=== PATIENT | male | born 1950 | race Hispanic/Latino ===

== ENCOUNTER 2017-06-17 16:36 | Emergency (ER) | payer OTHER ==
[~2017-06-17] VITALS: Ht 170.2 cm; Wt 68.0 kg
[2017-06-17] MEDS ORDERED: ONDANSETRON HCL INJ 2 MG/ML VIAL IV STA (17:06)
[2017-06-17] MEDS ORDERED: HYDROMORPHONE 1MG/1ML INJ IV STA (17:06)
[2017-06-17] MEDS ORDERED: ONDANSETRON HCL INJ 2 MG/ML VIAL IV SCH (17:15)
[2017-06-17] MEDS ORDERED: HYDROMORPHONE 1MG/1ML INJ IV SCH (17:15)
[2017-06-17] MEDS ORDERED: SODIUM CHLORIDE 0.9% 1000ML 1,000 ML IV SCH (17:15)
[2017-06-17 17:31] LABS: BASOPHILS # (AUTO) 0.1 (0.0-0.1); BASOPHILS % 0.2 % (0.0-1.0); EOSINOPHILS % 0.2 % (0.0-6.0); HEMATOCRIT 45.4 % (38.2-49.6); HEMOGLOBIN 16.3 g/dL (14.0-18.0); LYMPHOCYTES # (AUTO) 2.2 (1.0-3.2); LYMPHOCYTES % 10.5 % (18.0-39.1); MEAN CORPUSCULAR HEMOGLOBIN 33.7 pg (28-32); MEAN CORPUSCULAR HGB CONC 35.9 g/dL (31-35); MEAN CORPUSCULAR VOLUME 93.8 fL (81-99); MONOCYTES # (AUTO) 1.5 (0.2-0.8); NEUTROPHILS % 80.9 % (38.7-80.0); PLATELET COUNT 245 x10e3/uL (140-360); RED BLOOD COUNT 4.84 x10e6/uL (4.3-5.7); RED CELL DISTRIBUTION WIDTH 12.8 % (11.7-14.4)
[2017-06-17 17:42] LABS: INR 1.06; PARTIAL THROMBOPLASTIN TIME 27.7 seconds (23.8-35.5)
[2017-06-17 17:47] LABS: ALANINE AMINOTRANSFERASE 39 IU/L (0-55); ALBUMIN 4.3 g/dL (3.5-5.0); ALBUMIN/GLOBULIN RATIO 1.3 (0.8-2.0); ALKALINE PHOSPHATASE 63 IU/L (40-150); ANION GAP 20.3 mmol/L (8-16); BLOOD UREA NITROGEN 11 mg/dL (7-26); BUN/CREATININE RATIO 11 (6-25); CARBON DIOXIDE 18 mmol/L (22-29); CHLORIDE 98 mmol/L (98-107); CREATININE, SERUM 1.04 mg/dL (0.72-1.25); EST GLOMERULAR FILTRATION RATE > 60 ML/MIN (60-); GLUCOSE 119 mg/dL (74-118); POTASSIUM 3.3 mmol/L (3.5-5.1); SODIUM 133 mmol/L (136-145)
--- NOTE | 2017-06-17 18:15 | Diagnostic Imaging Report ---
Examination: CT BRAIN WITHOUT CONTRAST History:Fall. Head injury. Comparison studies:None Technique: Axial images were obtained from the skull base to the vertex. Coronal and sagittal images reconstructed from the axial data. Intravenous contrast: None Findings: Scalp: No abnormalities. Bones: No fractures, blastic or lytic lesions. Brain sulci: Mild volume loss for age. Ventricles: No hydrocephalus. Extra-axial space: No abnormalities. Parenchyma: A 6 mm dystrophic calcification is seen in the right superior frontal gyrus, likely related to prior infectious or inflammatory process. No masses, hemorrhage, or acute or chronic cortical based vascular insults. Sellar/suprasellar region: No abnormalities. Craniocervical junction: Patent foramen magnum. No Chiari one malformation. Incidental findings: None. Impression: No acute intracranial abnormalities. Signed by: Dr. Karen Mcnally M.D. on 06/17/2017 6:12 PM
--- NOTE | 2017-06-17 18:17 | Diagnostic Imaging Report ---
Examination: CT CERVICAL SPINE WITHOUT CONTRAST HISTORY:Fall. Neck trauma and pain. COMPARISON:None. TECHNIQUE: Multidetector helical axial images were obtained without contrast from the foramen magnum to T1. Coronal and sagittal reformatted images were done. Bone and soft tissue windows were evaluated. FINDINGS: Alignment:Normal alignment and lordosis. Vertebrae: Normal height and density. No acute fracture, infection or neoplasm. Disc space heights: Normal height. Caliber of spinal canal: Developmentally normal. Posterior fossa and craniocervical junction: Foramen magnum patent. No Chiari 1 malformation. Soft tissues: No abnormality. Degenerative changes: C2-C3: Severe right facet and bilateral uncovertebral arthropathy result in mild right neural foraminal narrowing. No left foraminal or canal stenosis. C3-C4: Bilateral uncovertebral and mild right facet arthropathy result in moderate right and mild left neural foraminal narrowing. No canal stenosis. C4-C5: Diffuse disc osteophyte complex and bilateral uncovertebral arthropathy result in mild right and moderate left neural foraminal narrowing and mild canal stenosis. C6-C7: Diffuse disc osteophyte complex and bilateral uncovertebral arthropathy result in mild bilateral neural foraminal narrowing. No canal stenosis. The remaining cervical levels demonstrate no disc bulge/ herniation or foraminal or canal stenosis. IMPRESSION: No acute fracture. Signed by: Dr. Karen Mcnally M.D. on 06/17/2017 6:14 PM
--- NOTE | 2017-06-17 18:21 | Diagnostic Imaging Report ---
PROCEDURE: CT scan of the chest WITH intravenous contrast, using standard protocol. TECHNIQUE: The chest was scanned utilizing a multidetector helical scanner from the lung apex through the level of the adrenal glands after the IV administration of 100 cc of Isovue 370. Coronal and sagittal multiplanar reformations were obtained. COMPARISON: None. INDICATIONS: fall from 12 ft trauma protocol FINDINGS: Lines/tubes: None. Lungs and Airways: Minimal bilateral lower lobe dependent atelectasis. No consolidation, pulmonary nodules or masses. Airways are clear, without endobronchial lesions. Pleura: No effusion, or pneumothorax. Heart and mediastinum: Thyroid is unremarkable. Heart size is normal. No pericardial effusion. Atherosclerotic calcification of the coronary arteries and thoracic aortic arch. Aorta is non-aneurysmal. No mediastinal hematoma. Moderate atherosclerotic soft and hard plaque at the origin of the left subclavian artery, with approximately 25% luminal reduction. Lymph nodes: No mediastinal, hilar, or axillary adenopathy. Abdomen: See CT abdomen and pelvis performed same date for further detail. Bones: Acute, minimally displaced mildly comminuted fracture of the superior border of the left scapula (series 2, image 7, and sagittal image 96). Likely nondisplaced fracture of the superior angle of the left scapula (series 2, image 7). Rectum structures show no acute, displaced fracture or dislocation. Soft tissues are grossly unremarkable. IMPRESSION: 1. acute, minimally displaced, mildly comminuted fracture of the superior border and likely nondisplaced fracture of the superior angle of the left scapula. No other acute, displaced fractures or dislocations. 2. Lungs are grossly unremarkable. No lung parenchymal contusions or pneumothorax. 3. No mediastinal hematoma or evidence of acute aortic injury. Shady Xiong M.D. Dictated by: Shady Xiong M.D. on 06/17/2017 at 18:21 Electronically approved by: Shady Xiong M.D. on 06/17/2017 at 18:21
--- NOTE | 2017-06-17 18:28 | Diagnostic Imaging Report ---
PROCEDURE: CT ABDOMEN AND PELVIS WITH CONTRAST TECHNIQUE: The abdomen and pelvis were scanned utilizing a multidetector helical scanner from the diaphragm to the lesser trochanter after the IV administration of 100 cc of Isovue 370 and the oral administration of water. Coronal and sagittal multiplanar reformations were obtained. COMPARISON: None. INDICATIONS: FALL, TRAUMA PROTOCOL FINDINGS: LOWER THORAX: Please see chest CT performed same date for further detail. HEPATOBILIARY: No focal hepatic lesions. No biliary ductal dilatation. Gallbladder is unremarkable. SPLEEN: No splenomegaly. PANCREAS: No focal masses or ductal dilatation. ADRENALS: No adrenal nodules. KIDNEYS/URETERS: No hydronephrosis, stones, or solid mass lesions. 3.2 x 4.1 x 4.2 cm, mostly exophytic hypodensity (76 HU), lesion arising from the posterior mid to inferior aspect of the left kidney (series 2, image 71), which contains thin linear peripheral calcification in its posterior aspect PELVIC ORGANS/BLADDER: Bladder is unremarkable. Dystrophic calcifications in the prostate. PERITONEUM / RETROPERITONEUM: No free air or free fluid. LYMPH NODES: No lymphadenopathy. VESSELS: Mild atherosclerotic calcification of the abdominal aorta and iliac vessels. Celiac trunk, superior and inferior mesenteric, and bilateral renal arteries are patent. Portal, superior mesenteric, and splenic arteries are patent. GI TRACT: No bowel dilation or evidence of obstruction. Postoperative changes in the proximal transverse colon, likely from prior right hemicolectomy. No focal lesion. Descending and sigmoid colon diverticulosis, without diverticulitis. BONES AND SOFT TISSUES: No acute, displaced fracture or dislocation. Mild degenerative changes in the lower thoracic and lumbosacral spine. Facet hypertrophy. L4-L5 and L5-S1. No aggressive lytic or blastic lesion. Bilateral small fat-containing inguinal hernias, left greater than right. IMPRESSION: 1. no evidence of acute bone, or solid organ injury in the abdomen and pelvis. 2. 4.2 cm high density lesion arising from the posterior mid to inferior aspect of the left kidney likely represents a hemorrhagic cyst. 3. Descending and sigmoid colon diverticulosis, without diverticulitis. Shady Xiong M.D. Dictated by: Shady Xiong M.D. on 06/17/2017 at 18:28 Electronically approved by: Shady Xiong M.D. on 06/17/2017 at 18:28
--- NOTE | 2017-06-17 18:31 | Diagnostic Imaging Report ---
PROCEDURE:X-RAY LEFT KNEE, THREE OR MORE VIEWS COMPARISON:None. INDICATIONS:FALL KNEE PAIN FINDINGS: Limited views due to positioning. Lateral and cross table AP views of the knee are submitted for interpretation. Acute, displaced spiral fracture of the distal femoral diaphysis. Ill defined 1.9 cm bony fragment projecting posterior to the femoral condyles is indeterminate, and probably represents a fracture fragment. Other bony structures are intact. Joint spaces are relatively well-preserved. Moderate suprapatellar effusion and soft tissue swelling.. CONCLUSION: Acute, displaced spiral fracture of the distal femoral diaphysis Ill defined 1.9 cm bony fragment projecting posterior to the femoral condyle likely represents a fracture fragment. Moderate suprapatellar effusion and soft tissue swelling. Shady Xiong M.D. Dictated by: Shady Xiong M.D. on 06/17/2017 at 18:32 Electronically approved by: Shady Xiong M.D. on 06/17/2017 at 18:32
--- NOTE | 2017-06-17 18:32 | Diagnostic Imaging Report ---
PROCEDURE:X-RAY LEFT LOWER LEG COMPARISON:None. INDICATIONS:FALL TRAUMA LEG PAIN FINDINGS: Normal mineralization. No acute, displaced fracture or dislocation in the lower leg. Joint spaces are relatively well-preserved. No lytic or blastic lesion. Soft tissues are grossly unremarkable. CONCLUSION: No acute abnormalities in the lower leg. Shady Xiong M.D. Dictated by: Shady Xiong M.D. on 06/17/2017 at 18:32 Electronically approved by: Shady Xiong M.D. on 06/17/2017 at 18:32
--- NOTE | 2017-06-17 18:35 | Diagnostic Imaging Report ---
PROCEDURE:FEMUR 2 VIEWS MINIMUM LEFT COMPARISON:None. INDICATIONS:FALL TRAUMA LEG PAIN FINDINGS: Normal mineralization. Acute, displaced spiral fracture of the distal femoral diaphysis, with lateral displacement of the distal fracture fragment by greater than one shaft width. Rest of the bony structures is intact. Mild degenerative changes in the left hip joint. Associated soft tissue swelling in the distal thigh. CONCLUSION: Acute, displaced spiral fracture of the distal femoral diaphysis with lateral displacement of the distal fracture fragment by greater than one shaft width. Shady Xiong M.D. Dictated by: Shady Xiong M.D. on 06/17/2017 at 18:35 Electronically approved by: Shady Xiong M.D. on 06/17/2017 at 18:35
--- NOTE | 2017-06-17 18:38 | Diagnostic Imaging Report ---
PROCEDURE:X-RAY LEFT WRIST, COMPLETE COMPARISON:None. INDICATIONS:FALL WRIST PAIN FINDINGS: Normal mineralization. Acute, comminuted, likely impacted fracture of the distal radial metaphysis with intra-articular extension in the medial aspect. Other bony structures are intact. No lytic or blastic lesions. Preserved alignment of the carpal bones with the radius. Moderate soft tissue swelling in the wrists. CONCLUSION: Acute, comminuted, likely impacted fracture of the distal radial metaphysis with intra-articular extension in its medial aspect. Shady Xiong M.D. Dictated by: Shady Xiong M.D. on 06/17/2017 at 18:38 Electronically approved by: Shady Xiong M.D. on 06/17/2017 at 18:38
[2017-06-17] MEDS ORDERED: IOPAMIDOL 370 MG/ML 200 ML INFUS..BTL INJ ONE (20:10)
[2017-06-17] MEDS ORDERED: SODIUM CHLORIDE 0.9% 50ML 50 ML ONE (20:10)
== END 2017-06-17 18:56 | disposition short-term general hospital (02) ==
LOC: ER 16:36
PROC: 2W3DX1Z Immobilization of Left Lower Arm using Splint (ICD-10-PCS; principal; 2017-06-17)
PROC: 2W3MX1Z Immobilization of Left Lower Extremity using Splint (ICD-10-PCS; 2017-06-17)
DX: S52.592A Other fractures of lower end of left radius, initial encounter for closed fracture (principal); S72.492A Other fracture of lower end of left femur, initial encounter for closed fracture; W17.89XA Other fall from one level to another, initial encounter; Y93.39 Activity, other involving climbing, rappelling and jumping off; Y92.007 Garden or yard of unspecified non-institutional (private) residence as the place of occurrence of the external cause
CPT/HCPCS: 29125; 29505; 36415; 70450; 71260; 72125; 73110; 73552; 73562; 73590; 74177; 80053; 80320; 85025; 85610; 85730; 93005; 99285; J1170; J2405; J7030; Q9967

== ENCOUNTER → 2018-02-14 | Day surgery (SDC) | payer MEDICARE ==
[2018-01-27 15:31] LABS: BASOPHILS % 0.3 % (0.0-1.0); EOSINOPHILS # (AUTO) 0.1 (0.0-0.4); EOSINOPHILS % 1.3 % (0.0-6.0); HEMATOCRIT 50.9 % (38.2-49.6); HEMOGLOBIN 17.5 g/dL (14.0-18.0); LYMPHOCYTES # (AUTO) 1.9 (1.0-3.2); LYMPHOCYTES % 21.9 % (18.0-39.1); MEAN CORPUSCULAR HGB CONC 34.4 g/dL (31-35); MEAN CORPUSCULAR VOLUME 95.9 fL (81-99); MONOCYTES # (AUTO) 0.6 (0.2-0.8); MONOCYTES % 6.7 % (4.4-11.3); NEUTROPHILS % 69.3 % (38.7-80.0); PLATELET COUNT 248 x10e3/uL (140-360); RED BLOOD COUNT 5.31 x10e6/uL (4.3-5.7); RED CELL DISTRIBUTION WIDTH 13.9 % (11.7-14.4)
[~2018-02-14] MED LIST: FLOMAX0.4 MG PO; MIDAZOLAM HCL 2 MG/2 ML VIAL ONE; PROPOFOL IV EMULSION 10 MG/ML 50 ML VIAL ONE; [UNRECOGNIZED DRUG - OTHER] PO
--- OUTSIDE RECORDS SUMMARY | 2018-02-14 05:12 | XMS REPORT | Summary of Care ---
Author Author [facility] Organization [facility] Address Unknown Phone Unavailable Encounter PIPO Wharton(MAT) [id number] Date(s): 06/17/17 - 06/21/17 [facility] [address] [employer] provided by [facility] [place] [address]- Encounter Diagnosis Unspecified fracture of unspecified femur, initial encounter for closed fracture (Final) - Displaced spiral fracture of shaft of left femur, initial encounter for closed f racture (Final) - 06/29/17 Acidosis (Final) - Hypo-osmolality and hyponatremia (Final) - Hyperkalemia (Final) - Stable burst fracture of first lumbar vertebra, initial encounter for closed fra cture (Final) - Other intraarticular fracture of lower end of left radius, initial encounter for closed fracture (Final) - Alcohol abuse with intoxication, uncomplicated (Final) - Fracture of other part of scapula, left shoulder, initial encounter for closed f racture (Final) - Fall on and from ladder, initial encounter (Final) - Nutritional anemia, unspecified (Final) - Displaced fracture of triquetrum [cuneiform] bone, left wrist, initial encounter for closed fracture (Final) - Displaced fracture of medial condyle of left femur, initial encounter for closed fracture (Final) - Displaced fracture of lateral condyle of left femur, initial encounter for close d fracture (Final) - Sprain of anterior cruciate ligament of left knee, initial encounter (Final) - Discharge Disposition: Home Care with Home Health Attending Physician: Gail Baer MD Admitting Physician: Fer Garces MD Vital Signs 1 2 3 Most recent to oldest [Reference Range]: 170.18 cm (06/18/17 3:06 AM) 170.18 cm (06/17/17 7:12 PM) Height 98.7 DegF (06/21/17 11:46 AM) 98.0 DegF (06/21/17 8:25 AM) 98.3 DegF (06/21/17 4:38 AM) Temperature Oral [96.4-99.1 DegF] 118/67 mmHg (06/21/17 11:46 AM) 125/68 mmHg (06/21/17 8:25 AM) 105/62 mmHg (06/21/17 4:38 AM) Blood Pressure [90-140/60-90 mmHg] 18 BRMIN (06/21/17 3:23 PM) 18 BRMIN (06/21/17 11:46 AM) 18 BRMIN (06/21/17 8:25 AM) Respiratory Rate [14-20 BRMIN] 87 bpm (06/21/17 11:46 AM) 96 bpm (06/21/17 8:25 AM) 81 bpm (06/21/17 4:38 AM) Peripheral Pulse Rate [60-100 bpm] 75 kg (06/18/17 3:06 AM) 75 kg (06/17/17 7:12 PM) Weight 25.9 m2 (06/18/17 3:06 AM) 25.9 m2 (06/17/17 7:12 PM) Body Mass Index Problem List No data available for this section Allergies, Adverse Reactions, Alerts Substance Reaction Severity Status NKDA Active Medications acetaminophen 1,000 mg, 2 tab, Route: PO, Drug form: TAB, Q6H, Dosing Weight 75, kg, Priority: NOW, Start date: 06/17/17 21:45:00 INCIDENT RESPONSE COORDINATOR, Duration: 30 day, Stop date: 07/17/17 2 2:00:00 CDT Notes: Max acetaminophen 4000 mg/day (4 gm/day). (Same as: Tylenol Extra Streng th) Start Date: 06/17/17 Stop Date: 06/21/17 Status: Discontinued acetaminophen (ANES) Route: IV, Drug form: INJ, ONCE, Stop date: 06/18/17 9:02:00 INCIDENT RESPONSE COORDINATOR Start Date: 06/18/17 Stop Date: 06/18/17 Status: Completed albuterol 0.083% inhalation solution 2.49 mg, 3 mL, Route: NEB, Drug form: SOLN, PRN, Dosing Weight 75, kg, PRN Respi ratory Protocol, Start date: 06/19/17 15:56:00 INCIDENT RESPONSE COORDINATOR, Duration: 30 day, Stop date: 07/19/17 16:55:00 CDT Notes: SEE RT DOCUMENTATION (Same as: Proventil) Start Date: 06/19/17 Stop Date: 06/21/17 Status: Discontinued Ancef 2 gm, 20 mL, Route: IVPB, Drug form: SOLN, Q8H, Dosing Weight 75, kg, Start date : 06/19/17 16:00:00 INCIDENT RESPONSE COORDINATOR, Duration: 1 day, Stop date: 06/20/17 8:00:00 INCIDENT RESPONSE COORDINATOR, ABX I ndication: Surgical Prophylaxis Notes: (Same as Ancef) Start Date: 06/19/17 Stop Date: 06/20/17 Status: Completed ANES flumazenil 0.2 mg, 2 mL, Route: IVP, Drug form: INJ, PRN, Dosing Weight 75, kg, PRN Benzodi azepine Reversal, Initial dose, Start date: 06/18/17 9:42:00 INCIDENT RESPONSE COORDINATOR, Duration: 30 d ay, Stop date: 07/18/17 10:41:00 CDT Notes: (Same as: Romazicon) Start Date: 06/18/17 Stop Date: 06/18/17 Status: Discontinued ANES flumazenil 0.2 mg, 2 mL, Route: IVP, Drug form: INJ, PRN, Dosing Weight 75, kg, PRN Benzodi azepine Reversal, Initial dose, Start date: 06/19/17 9:39:00 INCIDENT RESPONSE COORDINATOR, Duration: 30 d ay, Stop date: 07/19/17 10:38:00 CDT Notes: (Same as: Romazicon) Start Date: 06/19/17 Stop Date: 06/19/17 Status: Discontinued ANES hydrALAZINE 10 mg, 0.5 mL, Route: IVP, Drug form: INJ, Q20Min, Dosing Weight 75, kg, PRN Sparkle vated BP, Start date: 06/18/17 9:42:00 INCIDENT RESPONSE COORDINATOR, Duration: 2 doses or times, Stop luis angel e: Limited # of times Notes: (Same as: Apresoline)Push over 5 minutes Start Date: 06/18/17 Stop Date: 06/18/17 Status: Discontinued ANES HYDROmorphone 0.5 mg, 0.25 mL, Route: IVP, Drug form: INJ, Q5Min, Dosing Weight 75, kg, PRN Pa in Score 7-10, Start date: 06/19/17 9:39:00 INCIDENT RESPONSE COORDINATOR, Duration: 4 doses or times, Sto p date: Limited # of times Notes: Same as Dilaudid Start Date: 06/19/17 Stop Date: 06/19/17 Status: Discontinued ANES labetalol 10 mg, 2 mL, Route: IVP, Drug form: INJ, Q5Min, Dosing Weight 75, kg, PRN Elevat ed BP, Start date: 06/18/17 9:42:00 INCIDENT RESPONSE COORDINATOR, Duration: 5 doses or times, Stop date: Limited # of times Start Date: 06/18/17 Stop Date: 06/18/17 Status: Discontinued ANES labetalol 10 mg, 2 mL, Route: IVP, Drug form: INJ, Q5Min, Dosing Weight 75, kg, PRN Elevat ed BP, Start date: 06/19/17 9:39:00 INCIDENT RESPONSE COORDINATOR, Duration: 5 doses or times, Stop date: Limited # of times Start Date: 06/19/17 Stop Date: 06/19/17 Status: Discontinued ANES metoprolol 1 mg, 1 mL, Route: IVP, Drug form: INJ, Q5Min, Dosing Weight 75, kg, PRN Other - See Comment, Start date: 06/18/17 9:42:00 INCIDENT RESPONSE COORDINATOR, Duration: 5 doses or times, Stop date: Limited # of times Notes: (Same as: Lopressor)Push over 2 minutes Start Date: 06/18/17 Stop Date: 06/18/17 Status: Discontinued ANES morphine Sulfate 2 mg, 0.5 mL, Route: IVP, Drug form: SOLN, Q5Min, Dosing Weight 75, kg, PRN Pain Score 4-6, Start date: 06/18/17 9:42:00 INCIDENT RESPONSE COORDINATOR, Duration: 5 doses or times, Stop d ate: Limited # of times Notes: (Same as:MORPhine Sulfate) Start Date: 06/18/17 Stop Date: 06/18/17 Status: Discontinued ANES naloxone 0.4 mg, 1 mL, Route: IVP, Drug form: INJ, Q2MIN, Dosing Weight 75, kg, PRN Narco tic Reversal, Start date: 06/18/17 9:42:00 INCIDENT RESPONSE COORDINATOR, Duration: 8 doses or times, Stop date: Limited # of times Notes: Same as Narcan Start Date: 06/18/17 Stop Date: 06/18/17 Status: Discontinued ANES naloxone 0.4 mg, 1 mL, Route: IVP, Drug form: INJ, Q2MIN, Dosing Weight 75, kg, PRN Narco tic Reversal, Start date: 06/19/17 9:39:00 INCIDENT RESPONSE COORDINATOR, Duration: 8 doses or times, Stop date: Limited # of times Notes: Same as Narcan Start Date: 06/19/17 Stop Date: 06/19/17 Status: Discontinued ANES ondansetron 4 mg, 2 mL, Route: IVP, Drug form: INJ, ONCE, Dosing Weight 75, kg, PRN Nausea & Vomiting, Start date: 06/18/17 9:42:00 INCIDENT RESPONSE COORDINATOR Notes: (Same as: Eliazar) MEDICATION WASTE Product Size: 4 mgProduct Was mila: ___ mg Start Date: 06/18/17 Stop Date: 06/18/17 Status: Discontinued ANES ondansetron 4 mg, 2 mL, Route: IVP, Drug form: INJ, ONCE, Dosing Weight 75, kg, PRN Nausea & Vomiting, Start date: 06/19/17 9:39:00 INCIDENT RESPONSE COORDINATOR Notes: (Same as: Eliazar) MEDICATION WASTE Product Size: 4 mgProduct Was mila: ___ mg Start Date: 06/19/17 Stop Date: 06/19/17 Status: Discontinued ANES oxyCODONE 5 mg, 1 tab, Route: PO, Drug form: TAB, Q4H, Dosing Weight 75, kg, PRN Pain Scor e 4-6, Start date: 06/18/17 9:42:00 INCIDENT RESPONSE COORDINATOR, Duration: 30 day, Stop date: 07/18/17 9 :41:00 CDT Notes: (Same as: Roxicodone) Start Date: 06/18/17 Stop Date: 06/18/17 Status: Discontinued ANES oxyCODONE 10 mg, 2 tab, Route: PO, Drug form: TAB, Q4H, Dosing Weight 75, kg, PRN Pain Sco re 7-10, Start date: 06/18/17 9:42:00 INCIDENT RESPONSE COORDINATOR, Duration: 30 day, Stop date: 07/18/17 9:41:00 CDT Notes: (Same as: Roxicodone) Start Date: 06/18/17 Stop Date: 06/18/17 Status: Discontinued ANES oxyCODONE 5 mg, 1 tab, Route: PO, Drug form: TAB, Q4H, Dosing Weight 75, kg, PRN Pain Scor e 4-6, Start date: 06/19/17 9:39:00 INCIDENT RESPONSE COORDINATOR, Duration: 30 day, Stop date: 07/19/17 9 :38:00 CDT Notes: (Same as: Roxicodone) Start Date: 06/19/17 Stop Date: 06/19/17 Status: Discontinued aspirin 325 mg, 1 tab, Route: PO, Drug form: TAB, Daily, Dosing Weight 75, kg, Start luis angel e: 06/20/17 9:00:00 INCIDENT RESPONSE COORDINATOR, Duration: 30 day, Stop date: 07/19/17 9:00:00 CDT Notes: Take with food. Start Date: 06/20/17 Stop Date: 06/19/17 Status: Canceled aspirin 325 mg tablet 325 mg=1 tab, PO, BID, # 42 tab, 0 Refill(s), Pharmacy: [facility], [address] previous daily script, needs BID ASA for ppx. Start Date: 06/21/17 Stop Date: 07/12/17 Status: Ordered aspirin 325 mg tablet 325 mg=1 tab, PO, Daily, # 21 tab, 0 Refill(s), Pharmacy: [facility] Start Date: 06/21/17 Stop Date: 06/21/17 Status: Discontinued bisacodyl 10 mg, 2 tab, Route: PO, Drug form: ECTAB, Q24H, Dosing Weight 75, kg, PRN Const ipation, Start date: 06/17/17 21:39:00 INCIDENT RESPONSE COORDINATOR, Duration: 30 day, Stop date: 8 21:38:00 CDT Notes: (Same As: Dulcolax, Correctol) (Do Not Crush) "Do Not Crush" Start Date: 06/17/17 Stop Date: 06/21/17 Status: Discontinued ceFAZolin (ANES) Route: IV, Drug form: INJ, ONCE, Stop date: 06/19/17 9:55:00 INCIDENT RESPONSE COORDINATOR Start Date: 06/19/17 Stop Date: 06/19/17 Status: Completed ceFAZolin (ANES) Route: IV, Drug form: INJ, ONCE, Stop date: 06/18/17 8:47:00 INCIDENT RESPONSE COORDINATOR Start Date: 06/18/17 Stop Date: 06/18/17 Status: Completed ceFAZolin (SCIP) 2 gm, 20 mL, Route: IVP, Drug form: SOLN, Q8H, Dosing Weight 75, kg, Start date: 06/18/17 16:00:00 INCIDENT RESPONSE COORDINATOR, Duration: 3 doses or times, Stop date: 06/19/17 8:00:00 INCIDENT RESPONSE COORDINATOR, ABX Indication: Surgical Prophylaxis Notes: (Same as Ancef) Start Date: 06/18/17 Stop Date: 06/19/17 Status: Completed celecoxib 200 mg, 2 cap, Route: PO, Drug form: CAP, Q12H, Dosing Weight 75, kg, Priority: NOW, Start date: 06/17/17 21:45:00 INCIDENT RESPONSE COORDINATOR, Duration: 48 hr, Stop date: 06/19/17 21: 00:00 INCIDENT RESPONSE COORDINATOR Notes: NSAID. Please check indication. Not for seizure. (Same As: CeleBREX) Start Date: 06/17/17 Stop Date: 06/19/17 Status: Completed dexamethasone (ANES) Route: IV, Drug form: INJ, ONCE, Stop date: 06/19/17 10:07:00 INCIDENT RESPONSE COORDINATOR Start Date: 06/19/17 Stop Date: 06/19/17 Status: Completed dexamethasone (ANES) Route: IV, Drug form: INJ, ONCE, Stop date: 06/18/17 9:22:00 INCIDENT RESPONSE COORDINATOR Start Date: 06/18/17 Stop Date: 06/18/17 Status: Completed docusate 100 mg, Route: PO, Drug form: CAP, BID, Dosing Weight 75, kg, Priority: STAT, St art date: 06/18/17 9:52:00 INCIDENT RESPONSE COORDINATOR, Duration: 30 day, Stop date: 07/18/17 9:00:00 CD T Start Date: 06/18/17 Stop Date: 06/18/17 Status: Discontinued docusate 100 mg, 1 cap, Route: PO, Drug form: CAP, Q12H, Dosing Weight 75, kg, Start date : 06/18/17 14:00:00 INCIDENT RESPONSE COORDINATOR, Duration: 30 day, Stop date: 07/18/17 9:00:00 CDT Notes: (Same as: Colace) (Do Not Crush) Start Date: 06/18/17 Stop Date: 06/21/17 Status: Discontinued docusate 100 mg, 1 cap, Route: PO, Drug form: CAP, BID, Dosing Weight 75, kg, PRN Constip ation, Start date: 06/17/17 21:39:00 INCIDENT RESPONSE COORDINATOR, Duration: 30 day, Stop date: 07/17/17 21:38:00 CDT Notes: (Same as: Colace) (Do Not Crush) Start Date: 06/17/17 Stop Date: 06/18/17 Status: Discontinued enoxaparin 30 mg, 0.3 mL, Route: SUB-Q, Drug form: INJ, [id number], Dosing Weight 75, kg, Sta rt date: 06/18/17 13:00:00 INCIDENT RESPONSE COORDINATOR, Duration: 30 day, Stop date: 07/18/17 1:00:00 CD T Notes: (Same as: Lovenox) Start Date: 06/18/17 Stop Date: 06/21/17 Status: Discontinued enoxaparin 40 mg, 0.4 mL, Route: SUB-Q, Drug form: INJ, [id number], Dosing Weight 75, kg, Sta rt date: 06/17/17 22:00:00 INCIDENT RESPONSE COORDINATOR, Stop date: 07/16/17 22:00:00 CDT Notes: (Same as: Lovenox) Start Date: 06/17/17 Stop Date: 06/18/17 Status: Discontinued enoxaparin 30 mg, Route: SUB-Q, [id number], Dosing Weight 75, kg, Start date: 06/17/17 22:00: 00 INCIDENT RESPONSE COORDINATOR, Duration: 30 day, Stop date: 07/17/17 10:00:00 CDT Start Date: 06/17/17 Stop Date: 06/17/17 Status: Discontinued fentaNYL 100 microgram, Route: IV, ONCE, Dosing Weight 75, kg, Start date: 06/17/17 21:31 :00 INCIDENT RESPONSE COORDINATOR, Stop date: 06/17/17 21:31:00 INCIDENT RESPONSE COORDINATOR Start Date: 06/17/17 Stop Date: 06/17/17 Status: Completed fentaNYL 50 microgram, Route: IV, Drug form: INJ, ONCE, Dosing Weight 75, kg, Start date: 06/18/17 0:56:00 INCIDENT RESPONSE COORDINATOR, Stop date: 06/18/17 0:56:00 INCIDENT RESPONSE COORDINATOR, Pediatric Dosing; For pr ocedure; > 50 kg Start Date: 06/18/17 Stop Date: 06/18/17 Status: Completed fentaNYL (ANES) Route: IV, Drug form: INJ, ONCE, Stop date: 06/19/17 10:01:00 INCIDENT RESPONSE COORDINATOR Start Date: 06/19/17 Stop Date: 06/19/17 Status: Completed fentaNYL (ANES) Route: IV, Drug form: INJ, ONCE, Stop date: 06/18/17 9:22:00 INCIDENT RESPONSE COORDINATOR Start Date: 06/18/17 Stop Date: 06/18/17 Status: Completed folic acid 1 mg, 1 tab, Route: PO, Drug form: TAB, Daily, Dosing Weight 75, kg, Start date: 06/20/17 9:00:00 INCIDENT RESPONSE COORDINATOR, Duration: 30 day, Stop date: 07/19/17 9:00:00 CDT Notes: (Same as: Folvite) Start Date: 06/20/17 Stop Date: 06/21/17 Status: Discontinued influenza virus vaccine, inactivated 0.5 mL, Route: IM, Drug Form: SUSP, Daily, Start date: 06/18/17 9:00:00 INCIDENT RESPONSE COORDINATOR, Dur ation: 1 doses or times, Stop date: 06/18/17 9:00:00 INCIDENT RESPONSE COORDINATOR Notes: (Same as: Fluzone Quadrivalent, Fluarix Quadrivalent)For 3 years of age a nd older (0.5 mL IM)Shake well before use Start Date: 06/18/17 Stop Date: 06/18/17 Status: Completed ketOROLAC (ANES) IV, ONCE Start Date: 06/19/17 Stop Date: 06/19/17 Status: Completed ketOROLAC (ANES) IV, ONCE Start Date: 06/18/17 Stop Date: 06/18/17 Status: Completed Lactated Ringers Injection IV (ANES) 1000 mL Route: IV, Total Volume: 1,000, Start date: 06/18/17 7:31:00 INCIDENT RESPONSE COORDINATOR, Stop date: 07/03 8:31:00 INCIDENT RESPONSE COORDINATOR Start Date: 06/18/17 Stop Date: 06/18/17 Status: Completed Lactated Ringers Injection IV (ANES) 500 mL Route: IV, Total Volume: 500, Start date: 06/19/17 9:59:00 INCIDENT RESPONSE COORDINATOR, Stop date: 06/19 10:59:00 INCIDENT RESPONSE COORDINATOR Start Date: 06/19/17 Stop Date: 06/19/17 Status: Completed lidocaine (ANES) Route: IV, Drug form: INJ, ONCE, Stop date: 06/19/17 10:01:00 INCIDENT RESPONSE COORDINATOR Start Date: 06/19/17 Stop Date: 06/19/17 Status: Completed lidocaine (ANES) Route: IV, Drug form: INJ, ONCE, Stop date: 06/18/17 8:57:00 INCIDENT RESPONSE COORDINATOR Start Date: 06/18/17 Stop Date: 06/18/17 Status: Completed metoclopramide (ANES) Route: IV, Drug form: INJ, ONCE, Stop date: 06/19/17 10:07:00 INCIDENT RESPONSE COORDINATOR Start Date: 06/19/17 Stop Date: 06/19/17 Status: Completed midazolam (ANES) Route: IV, Drug form: SOLN, ONCE, Stop date: 06/19/17 10:01:00 INCIDENT RESPONSE COORDINATOR Start Date: 06/19/17 Stop Date: 06/19/17 Status: Completed MiraLax 17 gm, 1 pkt, Route: PO, Drug form: PWDR, Daily, Dosing Weight 75, kg, Start luis angel e: 06/20/17 9:00:00 INCIDENT RESPONSE COORDINATOR, Duration: 30 day, Stop date: 07/19/17 9:00:00 CDT Notes: Dissolve in 8 oz of water or juice.(Same as: Miralax) Start Date: 06/20/17 Stop Date: 06/21/17 Status: Discontinued morphine Sulfate 4 mg, Route: IVP, ONCE, Dosing Weight 75, kg, Priority: STAT, Start date: 19:30:00 INCIDENT RESPONSE COORDINATOR, Stop date: 06/17/17 19:30:00 INCIDENT RESPONSE COORDINATOR Start Date: 06/17/17 Stop Date: 06/17/17 Status: Completed morphine Sulfate (ANES) Route: IV, Drug form: INJ, ONCE, Stop date: 06/19/17 10:46:00 INCIDENT RESPONSE COORDINATOR Start Date: 06/19/17 Stop Date: 06/19/17 Status: Completed ondansetron 4 mg, 2 mL, Route: IVP, Drug form: INJ, Q24H, Dosing Weight 75, kg, PRN Nausea & Vomiting, Start date: 06/17/17 21:39:00 INCIDENT RESPONSE COORDINATOR, Duration: 30 day, Stop date: 07/17 21:38:00 CDT Notes: (Same as: Eliazar) MEDICATION WASTE Product Size: 4 mgProduct Was mila: ___ mg Start Date: 06/17/17 Stop Date: 06/21/17 Status: Discontinued ondansetron (ANES) Route: IV, Drug form: INJ, ONCE, Stop date: 06/18/17 10:07:00 INCIDENT RESPONSE COORDINATOR Start Date: 06/18/17 Stop Date: 06/18/17 Status: Completed oxyCODONE 5 mg immediate release 5 mg, 1 tab, Route: PO, Drug form: TAB, Q4H, Dosing Weight 75, kg, PRN Pain Scor e 4-6, Start date: 06/17/17 21:45:00 INCIDENT RESPONSE COORDINATOR, Duration: 30 day, Stop date: 07/17/17 21:44:00 CDT Notes: (Same as: Roxicodone) Start Date: 06/17/17 Stop Date: 06/21/17 Status: Discontinued PlasmaLyte A PH-7.4 1,000 mL 1,000 mL, Rate: 75 ml/hr, Infuse over: 13.3 hr, Route: IV, Dosing Weight 75 kg, Total Volume: 1,000, Start date: 06/19/17 0:00:00 INCIDENT RESPONSE COORDINATOR, Duration: 18 hr, Stop luis angel e: 06/19/17 17:59:00 INCIDENT RESPONSE COORDINATOR, 1.9, m2 Notes: (Same as: Isolyte S PH 7.4) Start Date: 06/19/17 Stop Date: 06/19/17 Status: Discontinued pneumococcal 13-valent vaccine 0.5 mL, Route: IM, Drug Form: INJ, ONCALL, Start date: 06/18/17 9:00:00 INCIDENT RESPONSE COORDINATOR, Dur ation: 1 doses or times Notes: Shake well prior to use (Same as: Prevnar 13) Start Date: 06/18/17 Stop Date: 06/21/17 Status: Discontinued pregabalin 100 mg, 1 cap, Route: PO, Drug form: CAP, Q8H, Dosing Weight 75, kg, Priority: N OW, Start date: 06/17/17 21:45:00 INCIDENT RESPONSE COORDINATOR, Duration: 48 hr, Stop date: 06/19/17 14:0 0:00 INCIDENT RESPONSE COORDINATOR Notes: (Same as: Juan) Start Date: 06/17/17 Stop Date: 06/19/17 Status: Completed propofol (ANES) Route: IV, Drug form: INJ, ONCE, Stop date: 06/19/17 10:01:00 INCIDENT RESPONSE COORDINATOR Start Date: 06/19/17 Stop Date: 06/19/17 Status: Completed propofol (ANES) Route: IV, Drug form: INJ, ONCE, Stop date: 06/18/17 9:22:00 INCIDENT RESPONSE COORDINATOR Start Date: 06/18/17 Stop Date: 06/18/17 Status: Completed rocuronium (ANES) Route: IV, Drug form: INJ, ONCE, Stop date: 06/18/17 8:57:00 INCIDENT RESPONSE COORDINATOR Start Date: 06/18/17 Stop Date: 06/18/17 Status: Completed senna 8.6 mg, 1 tab, Route: PO, Drug Form: TAB, Dosing Weight 75, kg, BID, Start date: 06/19/17 17:00:00 INCIDENT RESPONSE COORDINATOR, Duration: 30 day, Stop date: 07/19/17 9:00:00 CDT Notes: (Same as: Megan) Start Date: 06/19/17 Stop Date: 06/21/17 Status: Discontinued senna 17.2 mg, 2 tab, Route: PO, Drug Form: TAB, Dosing Weight 75, kg, Bedtime, Start date: 06/18/17 21:00:00 INCIDENT RESPONSE COORDINATOR, Duration: 30 day, Stop date: 07/17/17 21:00:00 CDT Notes: (Same as: Megan) Start Date: 06/18/17 Stop Date: 06/19/17 Status: Discontinued Sodium Chloride 0.9% (Bolus) IV 1,000 mL, 1000 ml/hr, Infuse Over: 1 hr, Route: IV, 1,000, Drug form: INJ, ONCE, Priority: STAT, Dosing Weight 75 kg, Start date: 06/17/17 20:37:00 INCIDENT RESPONSE COORDINATOR, Stop da te: 06/17/17 20:37:00 INCIDENT RESPONSE COORDINATOR Start Date: 06/17/17 Stop Date: 06/17/17 Status: Completed Sodium Chloride 0.9% (Bolus) IV 1,000 mL, 1000 ml/hr, Infuse Over: 1 hr, Route: IV, 1,000, Drug form: INJ, ONCE, Priority: STAT, Dosing Weight 75 kg, Start date: 06/17/17 20:35:00 INCIDENT RESPONSE COORDINATOR, Stop da te: 06/17/17 20:35:00 INCIDENT RESPONSE COORDINATOR Start Date: 06/17/17 Stop Date: 06/17/17 Status: Completed Sodium Chloride 0.9% (Bolus) IV 1,000 mL, 1000 ml/hr, Infuse Over: 1 hr, Route: IV, 1,000, Drug form: INJ, ONCE, Priority: STAT, Dosing Weight 75 kg, Start date: 06/17/17 20:33:00 INCIDENT RESPONSE COORDINATOR, Stop da te: 06/17/17 20:33:00 INCIDENT RESPONSE COORDINATOR Start Date: 06/17/17 Stop Date: 06/17/17 Status: Completed Sodium Chloride 0.9% (Bolus) IV 1,000 mL, 1000 ml/hr, Infuse Over: 1 hr, Route: IV, 1,000, Drug form: INJ, ONCE, Priority: STAT, Dosing Weight 75 kg, Start date: 06/17/17 22:06:00 INCIDENT RESPONSE COORDINATOR, Stop da te: 06/17/17 22:06:00 INCIDENT RESPONSE COORDINATOR Start Date: 06/17/17 Stop Date: 06/18/17 Status: Completed thiamine 100 mg, 1 tab, Route: PO, Drug form: TAB, Daily, Dosing Weight 75, kg, Start luis angel e: 06/20/17 9:00:00 INCIDENT RESPONSE COORDINATOR, Duration: 30 day, Stop date: 07/19/17 9:00:00 CDT Notes: (Same As: Vitamin B1) Start Date: 06/20/17 Stop Date: 06/21/17 Status: Discontinued tramadol 100 mg, 2 tab, Route: PO, Drug form: TAB, Q6H, Dosing Weight 75, kg, Priority: N OW, Start date: 06/17/17 21:45:00 INCIDENT RESPONSE COORDINATOR, Duration: 30 day, Stop date: 07/17/17 20: 00:00 CDT Notes: Not to exceed 400mg/day. (Same As: Ultram) Start Date: 06/17/17 Stop Date: 06/21/17 Status: Discontinued Results BLOOD BANK RESULTS 1 2 3 Most recent to oldest [Reference Range]: A POS *Unknown* (06/17/17 7:44 PM) ABO/Rh Negative (06/17/17 7:44 PM) Antibody Scrn ELECTROLYTES 1 2 3 Most recent to oldest [Reference Range]: 135 mEq/L (06/20/17 5:06 AM) 133 mEq/L *LOW* (06/19/17 1:47 AM) 133 mEq/L *LOW* (06/18/17 3:10 AM) Sodium Lvl [135-145 mEq/L] 4.2 mEq/L (06/20/17 5:06 AM) 4.9 mEq/L (06/19/17 1:47 AM) 4.5 mEq/L (06/18/17 3:10 AM) Potassium Lvl [3.5-5.1 mEq/L] 101 mEq/L (06/20/17 5:06 AM) 100 mEq/L (06/19/17 1:47 AM) 102 mEq/L (06/18/17 3:10 AM) Chloride Lvl [95-109 mEq/L] 24 mEq/L (06/20/17 5:06 AM) 22 mEq/L *LOW* (06/19/17 1:47 AM) 20 mEq/L *LOW* (06/18/17 3:10 AM) CO2 [24-32 mEq/L] 14.2 mEq/L (06/20/17 5:06 AM) 15.9 mEq/L (06/19/17 1:47 AM) 15.5 mEq/L (06/18/17 3:10 AM) AGAP [10.0-20.0 mEq/L] CHEM PANEL 1 2 3 Most recent to oldest [Reference Range]: 0.78 mg/dL (06/20/17 5:06 AM) 1.20 mg/dL (06/19/17 1:47 AM) 0.73 mg/dL (06/18/17 3:10 AM) Creatinine Lvl [0.50-1.40 mg/dL] 94 mL/min/1.73m2 1 *NA* (06/20/17 5:06 AM) 63 mL/min/1.73m2 2 *NA* (06/19/17 1:47 AM) 96 mL/min/1.73m2 3 *NA* (06/18/17 3:10 AM) eGFR 15 mg/dL (06/20/17 5:06 AM) 20 mg/dL (06/19/17 1:47 AM) 12 mg/dL (06/18/17 3:10 AM) BUN [7-22 mg/dL] 121 mg/dL *HI* (06/20/17 5:06 AM) 148 mg/dL *HI* (06/19/17 1:47 AM) 85 mg/dL (06/18/17 3:10 AM) Glucose Lvl [70-99 mg/dL] 6.8 g/dL (06/17/17 7:44 PM) Total Protein [6.4-8.4 g/dL] 3.4 g/dL *LOW* (06/17/17 7:44 PM) Albumin Lvl [3.5-5.0 g/dL] 3.4 g/dL (06/17/17 7:44 PM) Globulin [2.7-4.2 g/dL] 1.0 (06/17/17 7:44 PM) A/G Ratio [0.7-1.6] 7.6 mg/dL *LOW* (06/20/17 5:06 AM) 8.0 mg/dL *LOW* (06/19/17 1:47 AM) 7.7 mg/dL *LOW* (06/18/17 3:10 AM) Calcium Lvl [8.5-10.5 mg/dL] 47 unit/L (06/17/17 7:44 PM) ALT [0-65 unit/L] 65 unit/L *HI* (06/17/17 7:44 PM) AST [0-37 unit/L] 60 unit/L (06/17/17 7:44 PM) Alk Phos [39-136 unit/L] 0.9 mg/dL (06/17/17 7:44 PM) Bili Total [0.2-1.3 mg/dL] 0.1 mg/dL (06/17/17 7:44 PM) Bili Direct [0.0-0.3 mg/dL] 0.8 mg/dL (06/17/17 7:44 PM) Bili Indirect [0.0-1.0 mg/dL] 1.6 mMol/L (06/18/17 1:31 AM) 3.4 mMol/L *HI* (06/17/17 7:44 PM) Lactic Acid Lvl [0.5-2.2 mMol/L] 281 mOsm/kg (06/20/17 5:06 AM) Osmolality [280-300 mOsm/kg] 1Result Comment: The eGFR is calculated using the CKD-EPI formula. In most young, healthy individuals the eGFR will be >90 mL/min/1.73m2. The eGFR declines with age. An eGFR of 60-89 may be normal in some populations, particularly the elderly, for whom the CKD-EPI formula has not been extensively validated. Use of the eGFR is not recommended in the following populations: Individuals with unstable creatinine concentrations, including patients and those with serious co-morbid conditions. Patients with extremes in muscle mass or diet. The data above are obtained from the [employer] ( [employer]) which additionally recommends that when the eGFR is used in patients with extremes of body mass index for purposes of drug dosing, the eGFR should be mul tiplied by the estimated BMI. 2Result Comment: The eGFR is calculated using the CKD-EPI formula. In most young, healthy individuals the eGFR will be >90 mL/min/1.73m2. The eGFR declines with age. An eGFR of 60-89 may be normal in some populations, particularly the elderly, for whom the CKD-EPI formula has not been extensively validated. Use of the eGFR is not recommended in the following populations: Individuals with unstable creatinine concentrations, including patients and those with serious co-morbid conditions. Patients with extremes in muscle mass or diet. The data above are obtained from the National Kidney Disease Education Program ( NKDEP) which additionally recommends that when the eGFR is used in patients with extremes of body mass index for purposes of drug dosing, the eGFR should be mul tiplied by the estimated BMI. 3Result Comment: The eGFR is calculated using the CKD-EPI formula. In most young, healthy individuals the eGFR will be >90 mL/min/1.73m2. The eGFR declines with age. An eGFR of 60-89 may be normal in some populations, particularly the elderly, for whom the CKD-EPI formula has not been extensively validated. Use of the eGFR is not recommended in the following populations: Individuals with unstable creatinine concentrations, including patients and those with serious co-morbid conditions. Patients with extremes in muscle mass or diet. The data above are obtained from the National Kidney Disease Education Program ( NKDEP) which additionally recommends that when the eGFR is used in patients with extremes of body mass index for purposes of drug dosing, the eGFR should be mul tiplied by the estimated BMI. ANEMIA STUDY 1 2 3 Most recent to oldest [Reference Range]: 1569 pg/mL *HI* (06/20/17 5:06 AM) Vitamin B12 Lvl [254-1320 pg/mL] 11.8 ng/mL (06/19/17 5:44 PM) Folate Lvl [>=3.0 ng/mL] TOXICOLOGY 1 2 3 Most recent to oldest [Reference Range]: .106 % *NA* (06/17/17 7:44 PM) Etoh (%) 106 mg/dL *NA* (06/17/17 7:44 PM) Ethanol Lvl URINE CHEM 1 2 3 Most recent to oldest [Reference Range]: 352 mOsm/kg (06/19/17 5:53 PM) U Osmolality [300-800 mOsm/kg] HEMATOLOGY 1 2 3 Most recent to oldest [Reference Range]: 9.1 K/CMM (06/20/17 5:06 AM) 9.4 K/CMM (06/19/17 1:47 AM) 10.6 K/CMM *HI* (06/18/17 3:10 AM) WBC [3.7-10.4 K/CMM] 2.50 M/CMM *LOW* (06/20/17 5:06 AM) 3.18 M/CMM *LOW* (06/19/17 1:47 AM) 3.93 M/CMM *LOW* (06/18/17 3:10 AM) RBC [4.70-6.10 M/CMM] 8.5 g/dL *LOW* (06/20/17 5:06 AM) 10.8 g/dL *LOW* (06/19/17 1:47 AM) 13.3 g/dL *LOW* (06/18/17 3:10 AM) Hgb [14.0-18.0 g/dL] 23.7 % *LOW* (06/20/17 5:06 AM) 30.4 % *LOW* (06/19/17 1:47 AM) 38.1 % *LOW* (06/18/17 3:10 AM) Hct [42.0-54.0 %] 94.8 fL *HI* (06/20/17 5:06 AM) 95.5 fL *HI* (06/19/17 1:47 AM) 97.0 fL *HI* (06/18/17 3:10 AM) MCV [80.0-94.0 fL] 34.1 pg *HI* (06/20/17 5:06 AM) 33.9 pg *HI* (06/19/17 1:47 AM) 33.9 pg *HI* (06/18/17 3:10 AM) MCH [27.0-31.0 pg] 35.9 g/dL (06/20/17 5:06 AM) 35.5 g/dL (06/19/17 1:47 AM) 34.9 g/dL (06/18/17 3:10 AM) MCHC [32.0-36.0 g/dL] 13.1 % (06/20/17 5:06 AM) 12.9 % (06/19/17 1:47 AM) 13.4 % (06/18/17 3:10 AM) RDW [11.5-14.5 %] 9.4 fL (06/20/17 5:06 AM) 9.5 fL (06/19/17 1:47 AM) 9.3 fL (06/18/17 3:10 AM) MPV [7.4-10.4 fL] 137 K/CMM (06/20/17 5:06 AM) 152 K/CMM (06/19/17 1:47 AM) 181 K/CMM (06/18/17 3:10 AM) Platelet [133-450 K/CMM] 81.8 % *HI* (06/20/17 5:06 AM) 77.1 % *HI* (06/19/17 1:47 AM) 78.2 % *HI* (06/18/17 3:10 AM) Segs [45.0-75.0 %] 8.4 % *LOW* (06/20/17 5:06 AM) 9.7 % *LOW* (06/19/17 1:47 AM) 11.1 % *LOW* (06/18/17 3:10 AM) Lymphocytes [20.0-40.0 %] 9.7 % (06/20/17 5:06 AM) 13.0 % *HI* (06/19/17 1:47 AM) 10.6 % (06/18/17 3:10 AM) Monocytes [2.0-12.0 %] 0.1 % (06/19/17 1:47 AM) 0.1 % (06/18/17 1:31 AM) Eosinophils [0.0-4.0 %] 0.1 % (06/20/17 5:06 AM) 0.1 % (06/19/17 1:47 AM) 0.1 % (06/18/17 3:10 AM) Basophils [0.0-1.0 %] 7.5 K/CMM (06/20/17 5:06 AM) 7.2 K/CMM (06/19/17 1:47 AM) 8.3 K/CMM *HI* (06/18/17 3:10 AM) Segs-Bands # [1.5-8.1 K/CMM] 0.8 K/CMM *LOW* (06/20/17 5:06 AM) 0.9 K/CMM *LOW* (06/19/17 1:47 AM) 1.2 K/CMM (06/18/17 3:10 AM) Lymphocytes # [1.0-5.5 K/CMM] 0.9 K/CMM *HI* (06/20/17 5:06 AM) 1.2 K/CMM *HI* (06/19/17 1:47 AM) 1.1 K/CMM *HI* (06/18/17 3:10 AM) Monocytes # [0.0-0.8 K/CMM] Normal (06/18/17 1:31 AM) Normal (06/17/17 7:44 PM) RBC Morph slight *NA* (06/17/17 7:44 PM) Toxic Gran Normal (06/18/17 1:31 AM) Normal (06/17/17 7:44 PM) Plt Morph 14.5 seconds (06/19/17 1:47 AM) 14.1 seconds (06/18/17 3:10 AM) PT [12.0-14.7 seconds] 1.13 (06/19/17 1:47 AM) 1.09 (06/18/17 3:10 AM) INR [0.85-1.17] 44.1 seconds *HI* (06/19/17 1:47 AM) PTT [22.9-35.8 seconds] 113 seconds (06/17/17 7:44 PM) ACT (TEG) Rapid [86-118 seconds] 0.6 minutes *NA* (06/17/17 7:44 PM) Split Point Rapid 0.7 minutes (06/17/17 7:44 PM) R-time Rapid [0.4-0.7 minutes] 1.5 minutes (06/17/17 7:44 PM) K-time Rapid [0.6-2.3 minutes] 73 degrees (06/17/17 7:44 PM) Angle Rapid [64-80 degrees] 68 mm (06/17/17 7:44 PM) Max Amplitude Rapid [52-71 mm] 10.6 K d/sc (06/17/17 7:44 PM) G-value Rapid [5.0-11.6 K d/sc] 0.0 % (06/17/17 7:44 PM) Estimated % Lysis Rapid [0.0-7.5 %] Immunizations Given and Recorded Vaccine Date Status Refusal Reason influenza virus vaccine, inactivated 06/18/17 Given Procedures Procedure Date Related Diagnosis Body Site Status Excision of tumor of stomach1 2010 Completed 1removal of mass in stomach Social History Social History Type Response Substance Abuse Use: None. Alcohol Current, Type Beer. Frequency: Daily. 3 Drinks/Episode average. Smoking Status Current every day smoker; Type: Cigarettes; Exposure to Tobacco Smoke None; Cigarette Smoking Last 365 Days No; Reg Smoking Cessation Counseling No; Tobacco use per day: 3; entered on: 07/12/17 Assessment and Plan Extracted from: Title: daily ortho progress note Author: Callie Walker Date: 06/21/17 Progress Daily [facility] Completed: Jun, 09:46 by Callie Walker RM: [id number] - 02, 6EJPSILLER, [id number] (: 1950) M [facility] Service: [facility] Medicine Reason for Admission: FEMUR FRACTURE DISTAL RADIUS FRACTURE Working DRG: Ungroupable Code status: Full Code [Ordered]Current diet: Isolation: No Isolation/Standard Precautions Allergies: NKDA Ready for Discharge (Yes/No)? Gonzales still necessary (Yes/No): Line still necessary (Yes/No): 24hr Labs 06/20 0506 Vitamin B12 Gop1910 H VitalsTmp(F)[id number] 06/21 08:2598.433084/291207--- 06/21 04:3898.226962/064773--- 06/21 00:1298.439943/862952--- 06/20 20:3598.153129/572076--- 06/20 17:5598.008994/343451--- 24 Hr Tmax: 98.4F (36.89c) at 06/20 13:15Vital Signs are the last 5 in the past 48 hours. DateWt(kg)Wt(lb)Ht(cm)Ht(in)Method 06/18 75.00 [id number] 67.00Estimated 06/17 (initial) 75.00 165.00Measured .18 67.00Stated I&ORecordInOutBal 06/523hr Tot 2230 1525 705 4hr Tot 380 500 -120 Medications (13) Active Scheduled Meds (8): 06/17/17 acetaminophen 1,000 mg PO Q6H 06/18/17 docusate 100 mg PO Q12H 06/18/17 enoxaparin 30 mg SUB-Q [id number] 06/20/17 folic acid 1 mg PO Daily 06/20/17 polyethylene glycol 3350 (MiraLax) 17 gm PO Daily 06/19/17 senna 8.6 mg PO BID 06/20/17 thiamine 100 mg PO Daily 06/17/17 tramadol 100 mg PO Q6H Unscheduled Meds (1): 06/18/17 pneumococcal 13-valent vaccine 0.5 mL IM ONCALL PRN Meds (4): 06/19/17 albuterol (albuterol 0.083% inhalation solution) 2.49 mg NEB PRN 06/17/17 bisacodyl 10 mg PO Q24H 06/17/17 ondansetron 4 mg IVP Q24H 06/17/17 oxyCODONE (oxyCODONE 5 mg immediate release) 5 mg PO Q4H One Time Meds: None Continuous Infusions: None POSTOPERATIVE DIAGNOSIS: Left distal femoral shaft fracture. Left distal radius PROCEDURE PERFORMED:06/18/2017 1. Retrograde intramedullary nailing of left distal femoral fracture, spiral. 2. Examination under anesthesia to left knee. POSTOPERATIVE DIAGNOSIS:06/19/17 ([place]pplinger) Left closed distal radius fracture, Intra-articular extension involving greater than 3 components Exam A+0 x3, LLE: + KI, +surgical dressing clean and intact, moves toes, foot warm, cap refill brisk, EHL/FHL 5/5 Plan Pain: per primary team. Weight bearing status: WBATLLE in KI Abx:completed per scip protocol. DVT:lovenox Dressings:to b changed POD 7 or sooner if soiled Patient education: regarding knee brace, and follow up. Discharge Dispo At this time, we will defer any MRI or additional procedures for the knee until the femur fracture heals and the patient has recovered. It is unlikely he will require any additional ligamentous procedures to the knee; however, we will continue to follow his progress over the ensuing months. Extracted from: Title: PRS Hand Consult Note Author: Marlee Vinson MD Date: 06/18/17 Brent Perez a 67 yo M s/p fall from ladder who presents with L triquetral fracture - ORS managing other fxs; L arm was splinted in the ED - NWB LUE - No acute surgical intervention Plastic Surgery Fellow Addendum Patient seen and examined, agree with above. Exam limited to splint placement by ortho but good cap refill/sensation of digits. No acute surgical indications. Continue splint per ortho recs. Follow up with Dr Carey in 1-2 weeks. D/W Dr Cherry Mckoy MD Plastic Surgery Fellow Pager [phone] Extracted from: Title: Trauma H&P Author: Geovany Welch MD Date: 06/17/17 Trauma Surgery History and Physical Date of Admission/Consultation: 06/17/2017 Chief Complaint: Fall from 10 ft ladder Physician Requesting Consult: Dr. Richar Alexis Trauma Attending: Dr. Fer Garces Time of Consult: 20:45 Time of Evaluation: 20:50 History of Present Illness: 56 y/o M who presents as a transfer from outside hospital for a higher level of care. pt intoxicated fell from 10 foot ladder. landed on left side. did not hit head. no loc. outside reads conerning for left sided wrist, knee, femur and scapular frx. pt with pain in Left arm and leg. sharp in nature. worse with movement. better with rest. denies radiation of pain. denies guerra, vision changes,weakness or numbness Past Medical History: BPH Past Surgical History: surgical removal of intestinal mass Home Medications: "bph medicaiton" has not taken in 5 days Allergies: NKDA Social History: 3 beers per day, 2 cigarettes denies illicit drug use Family History: negative for cardiac, DM disease Review of Systems: Constitutional Symptoms: no fever, no weight loss, no weight gain, no fatigue, no malaise Eyes: no diplopia, no blurred vision, no redness, no discharge, no loss of vision Ears, Nose, Mouth, Throat: no dysphagia, no odynophagia, no otalgia, no deafness, no rhinorrhea Cardiovascular: no chest pain, no SOB, no [place], no orthopnea, no PND, exercise tolerated, no palpitations Respiratory: same as CVS, no cough, no hemoptysis Gastrointestinal: no NVD, no BPR, no dark stool, no constipation, no abdominal pain Genitourinary: no dysuria, no frequency, no urgency, no nocturia, no incontinence Musculoskeletal: as above otherwise negative Integumentary: (skin and/or breast): no rash, no hives, no breast pain, no mass, no nipple dc Neurological: no weakness, no headache, no seizure, no dizziness, no tingling, no numbness Psychiatric: no anxiety, no depression, no insomnia Endocrine: no polyuria, no polydipsia, no fatigue, no weight loss, no weight gain, no cold or heat intolerance, no palpitations Hematologic/Lymphatic: no bleeding, no bruising, no edema, no lumps (axilla groin neck) Allergic/Immunologic: no rash, no allergies, no fever, no chills Physical Examination: EDVS: T:98.23 BP:107/61. HR:94. RR 20 Neuro: GCS 15, AOx3, verbal Head: NCAT Eyes: Pupils 3mm and equally reactive TMs: Clear, no drainage Nose/throat: Clear, moist and patent Neck: Trachea midline, nontender. in collar Chest: Symmetric, CTAB, no crepitus Abdomen: Soft, NTND, no rebound or guarding, no scars Pelvis: Stable, nontender Genital: Normal external genitalia Back: Nontender, no deformities Extremities: LUE distal deformity of the wrist. radial pulse intact. sensation intact. tenderness with palpation. LLE: swelling in the the femur and knee. superficial abrasion. no open wounds. echymosis noted. distal pulses intact pt/dp. MARY:1 Vascular: 2+ pulses throughout, pink and well perfused Labs: 06/18 1943 Temp Ven37.0 pH Ven7.29 pCO2 Ven38 pO2 Ven43 HCO3 Ven18 L BE Kenney-8 L O2 Sat Ven72.1 H Glucose Lvl86 BUN11 Creatinine Lvl0.78 Sodium Fjh184 L Potassium Lvl5.7 H Chloride Lvl96 CO217 L AGAP19.7 Calcium Lvl7.9 L eGFR94 Lactic Acid Lvl3.4 H Ethanol Ciz980 Etoh (%).106 Total Protein6.8 Albumin Lvl3.4 L Bili Total0.9 Bili Direct0.1 Bili Indirect0.8 Alk Phos60 AST65 H ALT47 Globulin3.4 A/G Ratio1.0 ACT (TEG) Cfife363 Split Point Rapid0.6 R-time Rapid0.7 K-time Rapid1.5 Angle Rapid73 Max Amplitude Rapid68 G-value Rapid10.6 Estimated % Lysis Rapi0.0 Segs88.7 H Monocytes6.7 Lymphocytes4.3 L Basophils0.3 Segs-Bands #15.7 H Lymphocytes #0.8 L Monocytes #1.2 H RBC MorphNormal Plt MorphNormal Toxic [place] WBC17.7 H RBC4.47 L Hgb14.7 Hct42.8 MCV95.7 H MCH33.0 H MCHC34.5 RDW13.1 Pkkpbwdc869 MPV9.2 FAST: n/a Radiology: CT Head: negative CT C-spine: negative CT Chest/Abdomen/Pelvis: L scapular wing frx. L renal cyst Assessment and Plan: Patient is a 67 yo M/F who arrived to the ED as a transfer, brought in by , following Fall from [place], Upon arrival, patient had a GCS of 15 Primary survey intact. pt with L sided plan: admit to floor. pain control bowel reg Distal radus frx. ortho: to splint. final plan pending L femur frx. ortho: plan for traction pin. final plans pending ? tibial platue: otho: final plans pending L superiour scapular frx: nwb, ortho final plans pending lactic acidosis: hydrate: repeat labs following ETOH intoxication: plan for observation. repeat labs and clear c-spine to follow hyponatremia, hyperK. repeeat labs following hydration Geovany Welch. R2 EM Trauma Attending Attestation I have personally seen and examined the patient. I agree with the resident's assessment and plan, except as noted below. Primary Diagnoses: 1. Left femur fracture: MARY 1.0. Normal distal motor and sensation. Compartments soft. ORS consulted; will place in skeletal traction. Likely OR tomorrow for definitive repair. 2. Left distal radius fracture: Normal neurovascular exam of the left hand, though motor exam limited by pain. Capillary refill brisk at 1-2 seconds. ORS consulted; likely nonoperative management. 3. Left scapula fracture: ORS consulted; likely nonoperative management. 4. Alcohol abuse with acute intoxication: Needs social work consult for brief intervention. 5. Acute pain secondary to trauma: Start multimodal pain medication regimen. 6. Decreased functional mobility: PT/OT consult. Secondary Diagnoses: 1. BPH: Family to provide identity of unknown medication. Okay to restart. Disposition: Admit to 6 [facility]. Marcus Garces MD, MS Staff Surgeon [facility] #[id number] Addendum by Yuri, overread of CT abd pelv: L1 burst fracture: NS pending recomendations Geovany Additional Primary Diagnoses: Cherie SILVA 7. L1 burst fracture: Neurologically intact bilateral lower extremities. Normal rectal on tone and sensation. Neurosurgery Spine consulted. Continue thoracic and lumbar spine 06/17/2017 precautions for now. 22:41
--- OUTSIDE RECORDS SUMMARY | 2018-02-14 05:12 | XMS REPORT | Summary of Care ---
Author Author [facility] Address Unknown Phone Unavailable Encounter HQ Elaine_leonard(FIN) [id number] Date(s): 09/29/17 - 10/19/17 Critical access hospital Discharge Disposition: Still a patient Attending Physician: Dominik Hightower MD Vital Signs No data available for this section Problem List No data available for this section Allergies, Adverse Reactions, Alerts Substance Reaction Severity Status NKDA Active Medications No data available for this section Results No data available for this section Immunizations Given and Recorded Vaccine Date Status [...] 3; entered on: 07/12/17 Assessment and Plan No data available for this section
--- OUTSIDE RECORDS SUMMARY | 2018-02-14 05:12 | XMS REPORT ---
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 Allergies, Adverse Reactions, Alerts This patient has no known allergies or adverse reactions. Medications This patient has no known medications. Results Test Description Test Time Test Comments Text Results Atomic Results Result Comments WRIST COMPLETE LEFT [place] [address] Patient Name: JENNIFER DELANEY MR #: [id number] : 1950 Age/Sex: 67/M Req #: [id number] Adm Physician: Ordered by: PRATEEK MEANS MD Report #: [id number] Location: ER Room/Bed: Procedure: [id number] DX/WRIST COMPLETE LEFT Exam Date: 06/17/17 Exam Time: 1731 REPORT STATUS: Signed PROCEDURE: X-RAY LEFT WRIST, COMPLETE COMPARISON: None. INDICATIONS: FALL WRIST PAIN FINDINGS: Normal mineralization. Acute, comminuted, likely impacted fracture of the distal radial metaphysis with intra-articular extension in the medial aspect. Other bony structures are intact. No lytic or blastic lesions. Preserved alignment of the carpal bones with the radius. Moderate soft tissue swelling in the wrists. CONCLUSION: Acute, comminuted, likely impacted fracture of the distal radial metaphysis with intra-articular extension in its medial aspect. Tawnya Xiong M.D. Dictated by: Tawnya Xiong M.D. on 06/17/2017 at 18:38 Electronically approved by: Tawnya Xiong M.D. on 06/17/2017 at 18:38 Dictated By: TAWNYA XIONG MD Electro nically Signed By: TAWNYA XIONG MD on 06/17/171837 Transcribed By: SHLOMO on 06/17/171837 COPY TO: PRATEEK MEANS MD CT BRAIN WO [place] [address] Patient Name: JENNIFER DELANEY MR #: [id number] : 1950 Age/Sex: 67/M Req #: [id number] Adm Physician: Ordered by: PRATEEK MEANS MD Report #: [id number] Location: ER Room/Bed: Procedure: [id number] CT/CT BRAIN WO Exam Date: 06/17/17 Exam Time: 1740 REPORT STATUS: Signed Examination: CT BRAIN WITHOUT CONTRAST History:Fall. Head injury. Comparison studies:None Technique: Axial images were obtained from the skull base to the vertex. Coronal and sagittal images reconstructed from the axial data. Intravenous contrast: None Findings: Scalp: No abnormalities. Bones: No fractures, blastic or lytic lesions. Brain sulci: Mild volume loss for age. Ventricles: No hydrocephalus. Extra- axial space: No abnormalities. Parenchyma: A 6 mm dystrophic calcification is seen in the right superior frontal gyrus, likely related to prior infectious or inflammatory process. No masses, hemorrhage, or acute or chronic cortical based vascular insults. Sellar/suprasellar region: No abnormalities. Craniocervical junction: Patent foramen magnum. No Chiari one malformation. Incidental findings: None. Impression: No acute intracranial abnormalities. Signed by: Dr. Karen Mcnally M.D. on 06/17/2017 6:12 PM Dictated By: KAREN FRANKS MD 11 Transcribed By: EDWARD on 06/17/171811 COPY TO: PRATEEK MEANS MD CT CERVICAL SPINE WO [place] [address] Patient Name: JENNIFER DELANEY MR #: [id number] : 1950 Age/Sex: 67/M Req #: [id number] Adm Physician: Ordered by: PRATEEK MEANS MD Report #: [id number] Location: ER Room/Bed: Procedure: [id number] CT/CT CERVICAL SPINE WO Exam Date: 06/17/17 Exam Time: 1740 REPORT STATUS: Signed Examination: CT CERVICAL SPINE WITHOUT CONTRAST HISTORY:Fall. Neck trauma and pain. COMPARISON:None. TECHNIQUE: Multidetector helical axial images were obtained without contrast from the foramen magnum to T1. Coronal and sagittal reformatted images were done. Bone and soft tissue windows were evaluated. FINDINGS: Alignment:Normal alignment and lordosis. Vertebrae: Normal height and density. No acute fracture, infection or neoplasm. Disc space heights: Normal height. Caliber of spinal canal: Developmentally normal. Posterior fossa and craniocervical junction: Foramen magnum patent. No Chiari 1 malformation. Soft tissues: No abnormality. Degenerative changes: C2-C3: Severe right facet and bilateral uncovertebral arthropathy result in mild right neural foraminal narrowing. No left foraminal or canal stenosis. C3-C4: Bilateral uncovertebral and mild right facet arthropathy result in moderate right and mild left neural foraminal narrowing. No canal stenosis. C4-C5: Diffuse disc osteophyte complex and bilateral uncovertebral arthropathy result in mild right and moderate left neural foraminal narrowing and mild canal stenosis. C6-C7: Diffuse disc osteophyte complex and bilateral uncovertebral arthropathy result in mild bilateral neural foraminal narrowing. No canal stenosis. The remaining cervical levels demonstrate no disc bulge/ herniation or foraminal or canal stenosis. IMPRESSION: No acute fracture. Signed by: Dr. Karen Mcnally M.D. on 06/17/2017 6:14 PM Dictated By: KAREN FRANKS MD 13 Transcribed By: EDWARD on 06/17/171813 COPY TO: PRATEEK MEANS MD CT CHEST W [place] [address] Patient Name: JENNIFER DELANEY MR #: [id number] : 1950 Age/Sex: 67/M Req #: [id number] Adm Physician: Ordered by: PRATEEK MEANS MD Report #: [id number] Location: ER Room/Bed: Procedure: [id number] CT/CT CHEST W Exam Date: 06/17/17 Exam Time: 1740 REPORT STATUS: Signed PROCEDURE: CT scan of the chest WITH intravenous contrast, using standard protocol. TECHNIQUE: The chest was scanned utilizing a multidetector helical scanner from the lung apex through the level of the adrenal glands after the IV administration of 100 cc of Isovue 370. Coronal and sagittal multiplanar reformations were obtained. COMPARISON: None. INDICATIONS: fall from 12 ft trauma protocol FINDINGS: Lines/tubes: None. Lungs and Airways: Minimal bilateral lower lobe dependent atelectasis. No consolidation, pulmonary nodules or masses. Airways are clear, without endobronchial lesions. Pleura: No effusion, or pneumothorax. Heart and mediastinum: Thyroid is unremarkable. Heart size is normal. No pericardial effusion. Atherosclerotic calcification of the coronary arteries and thoracic aortic arch. Aorta is non-aneurysmal. No mediastinal hematoma. Moderate atherosclerotic soft and hard plaque at the origin of the left subclavian artery, with approximately 25% luminal reduction. Lymph nodes: No mediastinal, hilar, or axillary adenopathy. Abdomen: See CT abdomen and pelvis performed same date for further detail. Bones: Acute, minimally displaced mildly comminuted fracture of the superior border of the left scapula (series 2, image 7, and sagittal image 96). Likely nondisplaced fracture of the superior angle of the left scapula (series 2, image 7). Rectum structures show no acute, displaced fracture or dislocation. Soft tissues are grossly unremarkable. IMPRESSION: 1. acute, minimally displaced, mildly comminuted fracture of the superior border and likely nondisplaced fracture of the superior angle of the left scapula. No other acute, displaced fractures or dislocations. 2. Lungs are grossly unremarkable. No lung parenchymal contusions or pneumothorax. 3. No mediastinal hematoma or evidence of acute aortic injury. Tawnya Xiong M.D. Dictated by: Tawnya Xiong M.D. on 06/17/2017 at 18:21 Electronically approved by: Tawnya Xiong M.D. on 06/17/2017 at 18:21 Dictated By: TAWNYA XIONG MD 20 Transcribed By: SHLOMO on 06/17/171820 COPY TO: PRATEEK MEANS MD CT ABDOMEN/PELVIS [place] [address] Patient Name: JENNIFER DELANEY MR #: [id number] : 1950 Age/Sex: 67/M Req #: [id number] Adm Physician: Ordered by: PRATEEK MEANS MD Report #: [id number] Location: ER Room/Bed: Procedure: [id number] CT/CT ABDOMEN/PELVIS W Exam Date: 06/17/17 Exam Time: 1740 REPORT STATUS: Signed PROCEDURE: CT ABDOMEN AND PELVIS WITH CONTRAST TECHNIQUE: The abdomen and pelvis were scanned utilizing a multidetector helical scanner from the diaphragm to the lesser trochanter after the IV administration of 100 cc of Isovue 370 and the oral administration of water. Coronal and sagittal multiplanar reformations were obtained. COMPARISON: None. INDICATIONS: FALL, TRAUMA PROTOCOL FINDINGS: LOWER THORAX: Please see chest CT performed same date for further detail. HEPATOBILIARY: No focal hepatic lesions. No biliary ductal dilatation. Gallbladder is unremarkable. SPLEEN: No splenomegaly. PANCREAS: No focal masses or ductal dilatation. ADRENALS: No adrenal nodules. KIDNEYS/URETERS: No hydronephrosis, stones, or solid mass lesions. 3.2 x 4.1 x 4.2 cm, mostly exophytic hypodensity (76 HU), lesion arising from the posterior mid to inferior aspect of the left kidney (series 2, image 71), which contains thin linear peripheral calcification in its posterior aspect PELVIC ORGANS/BLADDER: Bladder is unremarkable. Dystrophic calcifications in the prostate. PERITONEUM / RETROPERITONEUM: No free air or free fluid. LYMPH NODES: No lymphadenopathy. VESSELS: Mild atherosclerotic calcification of the abdominal aorta and iliac vessels. Celiac trunk, superior and inferior mesenteric, and bilateral renal arteries are patent. Portal, superior mesent [place], and splenic arteries are patent. GI TRACT: No bowel dilation or evidence of obstruction. Postoperative changes in the proximal transverse colon, likely from prior right hemicolectomy. No focal lesion. Descending and sigmoid colon diverticulosis, without diverticulitis. BONES AND SOFT TISSUES: No acute, displaced fracture or dislocation. Mild degenerative changes in the lower thoracic and lumbosacral spine. Facet hypertrophy. L4-L5 and L5-S1. No aggressive lytic or blastic lesion. Bilateral small fat- containing inguinal hernias, left greater than right. IMPRESSION: 1. no evidence of acute bone, or solid organ injury in the abdomen and pelvis. 2. 4.2 cm high density lesion arising from the posterior mid to inferior aspect of the left kidney likely represents a hemorrhagic cyst. 3. Descending and sigmoid colon diverticulosis, without diverticulitis. Tawnya Xiong M.D. Dictated by: Tawnya Xiong M.D. on 06/17/2017 at 18:28 Electronically approved by: Tawnya Xiong M.D. on 06/17/2017 at 18:28 Dictated By: TAWNYA XIONG MD 27 Transcribed By: SHLOMO on 06/17/171827 COPY TO: PRATEEK MEANS MD KNEE LEFT THREE VIEWS [place] [address] Patient Name: JENNIFER DELANEY MR #: [id number] : 1950 Age/Sex: 67/M Req #: [id number] Adm Physician: Ordered by: PRATEEK MEANS MD Report #: [id number] Location: ER Room/Bed: Procedure: [id number] DX/KNEE LEFT THREE VIEWS Exam Date: Exam Time: REPORT STATUS: Signed PROCEDURE: X-RAY LEFT KNEE, THREE OR MORE VIEWS COMPARISON: None. INDICATIONS: FALL KNEE PAIN FINDINGS: Limited views due to positioning. Lateral and cross table AP views of the knee are submitted for interpretation. Acute, displaced spiral fracture of the distal femoral diaphysis. Ill defined 1.9 cm bony fragment projecting posterior to the femoral condyles is indeterminate, and probably represents a fracture fragment. Other bony structures are intact. Joint spaces are relatively well-preserved. Moderate suprapatellar effusion and soft tissue swelling.. CONCLUSION: Acute, displaced spiral fracture of the distal femoral diaphysis Ill defined 1.9 cm bony fragment projecting posterior to the femoral condyle likely represents a fracture fragment. Moderate suprapatellar effusion and soft tissue swelling. Tawnya Xiong M.D. Dictated by: Tawnya Xiong M.D. on 06/17/2017 at 18:32 Electronically approved by: Tawnya Xiong M.D. on 06/17/2017 at 18:32 Dictated By: TAWNYA XIONG MD 31 Transcribed By: SHLOMO on 06/17/171831 COPY TO: PRATEEK MEANS MD LOWER LEG LEFT [place] [address] Patient Name: JENNIFER DELANEY MR #: [id number] : 1950 Age/Sex: 67/M Req #: [id number] Adm Physician: Ordered by: PRATEEK MEANS MD Report #: [id number] Location: ER Room/Bed: Procedure: [id number] DX/LOWER LEG LEFT Exam Date: 06/17/17 Exam Time: 1726 REPORT STATUS: Signed PROCEDURE: X-RAY LEFT LOWER LEG COMPARISON: None. INDICATIONS: FALL TRAUMA LEG PAIN FINDINGS: Normal mineralization. No acute, displaced fracture or dislocation in the lower leg. Joint spaces are relatively well-preserved. No lytic or blastic lesion. Soft tissues are grossly unremarkable. CONCLUSION: No acute abnormalities in the lower leg. Tawnya Xiong M.D. Dictated by: Tawnya Xiong M.D. on 06/17/2017 at 18:32 Electronically approved by: Tawnya Xiong M.D. on 06/17/2017 at 18:32 Dictated By: TAWNYA XIONG MD 31 Transcribed By: SHLOMO on 06/17/17 183 COPY TO: PRATEEK MEANS MD FEMUR 2 VIEWS MINIMUM LEFT [place] [address] Patient Name: JENNIFER DELANEY MR #: [id number] : 1950 Age/Sex: 67/M Req #: [id number] Adm Physician: Ordered by: PRATEEK MEANS MD Report #: [id number] Location: ER Room/Bed: Procedure: [id number] DX/FEMUR 2 VIEWS MINIMUM LEFT Exam Date: Exam Time: REPORT STATUS: Signed PROCEDURE: FEMUR 2 VIEWS MINIMUM LEFT COMPARISON: None. INDICATIONS: FALL TRAUMA LEG PAIN FINDINGS: Normal mineralization. Acute, displaced spiral fracture of the distal femoral diaphysis, with lateral displacement of the distal fracture fragment by greater than one shaft width. Rest of the bony structures is intact. Mild degenerative changes in the left hip joint. Associated soft tissue swelling in the distal thigh. CONCLUSION: Acute, displaced spiral fracture of the distal femoral diaphysis with lateral displacement of the distal fracture fragment by greater than one shaft width. Tawnya Xiong M.D. Dictated by: Tawnya Xiong M.D. on 06/17/2017 at 18:35 Electronically approved by: Tawnya Xiong M.D. on 06/17/2017 at 18:35 Dictated By: TAWNYA XIONG MD 34 Transcribed By: SHLOMO on 06/17/171834 COPY TO: PRATEEK MEANS MD
--- OUTSIDE RECORDS SUMMARY | 2018-02-14 05:12 | XMS REPORT | Summary of Care ---
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 Name Role Phone RHETT SAMUEL Unavailable Unavailable KOLE SILVA, YUMIKO KEANE Unavailable Unavailable Unavailable Unavailable Functional Status Name Dates Details Functional status health issues are not documented Status: Name Dates Details Cognitive status health issues are not documented Status: Problems Name Dates Details Pelvis fracture (808.8, S32.9XXA) Status: Active Pelvic ring fracture (808.8, S32.810A) Status: Active Closed displaced spiral fracture of shaft of left femur, initial encounter (821.01, S72.342A) Status: Active Wrist pain (719.43, M25.539) Status: Active Closed Dykes's fracture of left radius, initial encounter (813.42, S52.562A) Status: Active Dykes's fracture of left radius, initial encounter for closed fracture (813.42, S52.562A) Status: Active 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, 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, left (718.56, M24.662) Status: Active Medications Name Dates Details Acetaminophen-Codeine #3 300-30 MG Oral Tablet TAKE 1 TABLET EVERY 6 HOURS Quantity: 40 RHETT SAMUEL * Start : 04-Jul-2017 Active TraMADol HCl - 50 MG Oral Tablet TAKE 1 TABLET Every twelve hours * Quantity: 20 Refills: 0 RHETT SAMUEL * Start : 15-Aug-2017 Active Lyrica 50 MG Oral Capsule P.O QHS * Quantity: 30 Refills: 0 RHETT SAMUEL * Start : 26-Sep-2017 Active Methocarbamol 500 MG Oral Tablet TAKE 1 TABLET BEDTIME * Quantity: 30 Refills: 0 RHETT SAMUEL * Start : 26-Sep-2017 Active Acetaminophen-Codeine #3 300-30 MG Oral Tablet TAKE 1 TABLET EVERY 6 HOURS * Quantity: 20 Refills: 0 RHETT SAMUEL * Start : 28-Nov-2017 Active Allergies and Adverse Reactions Name Dates Details Allergy history not documented Status: Procedures Procedure Dates Details [U] XRAY FEMUR 2 VWS LEFT 97604 Date: 28-Dec-2017 Immunization Name Dates Details Immunizations not documented Social History Name Dates Details Unknown if ever smoked Vital Signs Date Test Result Details No Known Vitals to report Results Date Description Value Details [id number] [U] XRAY FEMUR 2 VWS LEFT 34502 XR FEMUR 2 VWS LEFT Images acquired, not reported on this accession number. Plan of Care Name Dates Details Planned Observations Planned Goals not documented Planned Encounters Appointment; RHETT IZQUIERDO PA On: 02-Jan-2018 13:00 Interventions Provided Labs/Procedures/Imaging* [U] XRAY FEMUR 2 VWS LEFT 40322; To Be Done: 02 Jan 2018 Instructions Name Dates Details Instructions not documented Encounters Appointment; JOSE ALEJANDRA P.A. Encounter Diagnosis: Problem not documented On: 04-Jul-2017 10:30 Appointment; RHETT IZQUIERDO PA Encounter Diagnosis: Problem not documented On: 04-Jul-2017 12:30 Appointment; JOSE ALEJANDRA P.A. Encounter Diagnosis: Problem not documented On: 25-Jul-2017 10:30 Appointment; SHANNON PELLETIER D.O. Encounter Diagnosis: Problem not documented On: 15-Aug-2017 11:00 Appointment; RHETT IZQUIERDO PA Encounter Diagnosis: Problem not documented On: 15-Aug-2017 12:30 Appointment; SHANNON PELLETIER D.O. Encounter Diagnosis: Problem not documented On: 26-Sep-2017 11:00 Appointment; RHETT IZQUIERDO PA Encounter Diagnosis: Problem not documented On: 26-Sep-2017 12:30 Appointment; RHETT IZQUIERDO PA Encounter Diagnosis: Problem not documented On: 14-Nov-2017 13:00 Appointment; Dominik Hightower M.D. Encounter Diagnosis: Problem not documented On: 21-Nov-2017 7:30 Appointment; RHETT IZQUIERDO PA Encounter Diagnosis: Problem not documented On: 28-Nov-2017 13:00 Appointment; RHETT IZQUIERDO PA Encounter Diagnosis: Problem not documented On: 02-Jan-2018 13:00
--- OUTSIDE RECORDS SUMMARY | 2018-02-14 05:12 | XMS REPORT | Summary of Care ---
Author Author [facility] Organization [facility] Address Unknown Phone Unavailable Encounter HQ Akiko(FIN) [phone] Date(s): 07/12/17 - 07/12/17 [facility] [address], [address] [place], [place] [address] [phone] Discharge Disposition: Home or Self Care Attending Physician: Gibson Hilton MD Referring Physician: Gibson Hilton MD Vital Signs Most recent to 1 oldest [Reference Range]: Height 172.72 cm (07/12/17 3:55 PM) Blood Pressure 128/82 mmHg [90-140/60-90 mmHg] (07/12/17 3:55 PM) Peripheral Pulse 74 bpm Rate [60-100 bpm] (07/12/17 3:55 PM) Weight 65.909 kg (07/12/17 3:55 PM) Body Mass Index 22.09 m2 (07/12/17 3:55 PM) Problem List No data available for this [...]
--- OUTSIDE RECORDS SUMMARY | 2018-02-14 05:12 | XMS REPORT | Summary of Care ---
Author Author [facility] Neurosurgery [facility] Organization [facility] Neurosurgery [facility] Address Unknown Phone Unavailable Encounter HQ Elaine_leonard(FIN) [phone] Date(s): 06/23/17 - 06/24/17 [facility] Neurosurgery [facility] [address] [address], [address] [place] [phone] Vital Signs No data available for this [...]
[2018-02-14 08:30] VITALS: BP 162/89
== END | disposition home or self-care (01) ==
LOC: OR 05:04
PROVIDERS: ATTEND Internal Medicine Gastroenterology
DX: Z12.11 Encounter for screening for malignant neoplasm of colon (principal); D12.2 Benign neoplasm of ascending colon; D12.4 Benign neoplasm of descending colon; D12.5 Benign neoplasm of sigmoid colon; K64.1 Second degree hemorrhoids; N40.0 Benign prostatic hyperplasia without lower urinary tract symptoms; Z01.810 Encounter for preprocedural cardiovascular examination; Z01.812 Encounter for preprocedural laboratory examination
CPT/HCPCS: 36415; 45384; 45385; 85025; 93005; J2250; 45378; 45380

== ENCOUNTER → 2021-11-17 | Day surgery (SDC) | payer MEDICARE ==
[2021-11-13 10:37] LABS: BASOPHILS % 0.6 % (0.0-1.0); EOSINOPHILS # (AUTO) 0.1 (0.0-0.4); EOSINOPHILS % 0.7 % (0.0-6.0); HEMATOCRIT 48.1 % (38.2-49.6); HEMOGLOBIN 16.6 g/dL (14.0-18.0); LYMPHOCYTES # (AUTO) 1.3 (1.0-3.2); LYMPHOCYTES % 19.6 % (18.0-39.1); MEAN CORPUSCULAR HEMOGLOBIN 34.2 pg (28-32); MEAN CORPUSCULAR HGB CONC 34.5 g/dL (31-35); MEAN CORPUSCULAR VOLUME 99.2 fL (81-99); MONOCYTES # (AUTO) 0.6 (0.2-0.8); MONOCYTES % 8.6 % (4.4-11.3); NEUTROPHILS # (AUTO) 4.7 (2.1-6.9); NEUTROPHILS % 70.1 % (38.7-80.0); PLATELET COUNT 216 x10e3/uL (140-360); RED BLOOD COUNT 4.85 x10e6/uL (4.3-5.7); RED CELL DISTRIBUTION WIDTH 12.8 % (11.7-14.4)
[~2021-11-17] MED LIST changes: +ASPIRIN81 MG PO; +AVODART0.5 MG PO; +LIDOCAINE HCL 2% LOCAL INJ 5 ML SDV VIAL INJ ONE; +LOSARTAN POTASS25 MG PO; -MIDAZOLAM HCL 2 MG/2 ML VIAL ONE; +POVIDONE IODINE 0.05% 0.05 % ML PO ONE; +PROPOFOL IV EMULSION 10 MG/ML 20 ML VIAL ONE; -PROPOFOL IV EMULSION 10 MG/ML 50 ML VIAL ONE
[2021-11-17 13:35] VITALS: BP 135/82
== END | disposition home or self-care (01) ==
LOC: OR 08:46
PROVIDERS: ATTEND Internal Medicine Gastroenterology
DX: Z12.11 Encounter for screening for malignant neoplasm of colon (principal); D12.2 Benign neoplasm of ascending colon; D12.4 Benign neoplasm of descending colon; K64.8 Other hemorrhoids; I10 Essential (primary) hypertension; F17.200 Nicotine dependence, unspecified, uncomplicated; Z01.812 Encounter for preprocedural laboratory examination; Z20.822 Contact with and (suspected) exposure to COVID-19
CPT/HCPCS: 0223U; 36415; 45384; 45385; 85025; 93005; 45380; J2001